=== PATIENT | male | born 2000 | race Caucasian/White ===

== ENCOUNTER 2018-03-06 14:31 | Emergency (ER) | payer OTHER ==
[2018-03-06] MEDS ORDERED: NS 1,000 ML IV ONE (15:26)
--- NOTE | 2018-03-06 15:30 | EDPHY ---
H & P Time Seen by Provider: 03/06/18 15:00 HPI/ROS: HPI Abdominal pain. 17-year-old male by private vehicle. This patient reports that he has had periumbilical and mid upper abdominal pain which has been intermittent in nature for the last week but worse over the last couple of days. He describes it as sharp and cramping. He reports it is worsen with movements such as coughing and walking. He has had some associated nausea. He reports 3 episodes of nonbilious, nonbloody vomiting this week. No diarrhea. Last bowel movement was this morning. He describes this as normal. No bloody or melenic stool. Last meal was last night at midnight. Denies any urinary complaints. No previous abdominal surgical history. ROS: Constitutional: No fever, no chills. No weakness. Eyes: No discharge. No changes in vision. ENT: No sore throat. No nasal congestion or rhinorrhea. Respiratory: No cough. No shortness of breath. Cardiac: No chest pain, no palpitations. Gastrointestinal: As above, no diarrhea. Genitourinary: No hematuria. No dysuria or increased frequency with urination. No testicular pain. Musculoskeletal: No back pain. No neck pain. No myalgias or arthralgias. Skin: No rashes. Neurological: No headache. No focal weakness or altered sensation. Past medical history: Pneumonia, no other significant past medical history. Social history: Nonsmoker. [employer]. Denies alcohol. Physical Exam: General Appearance: Alert, no distress. This patient is responding to questions appropriately and in full sentences. This patient appears well- hydrated and well-nourished. Eyes: Pupils equal and round no pallor or injection. No lid edema, erythema or injection. Respiratory: There are no retractions, lungs are clear to auscultation with good air movement bilaterally. Cardiovascular: Regular rate and rhythm. No murmur. Gastrointestinal: Abdomen is soft with vague periumbilical and mid upper abdominal tenderness on palpation, no masses, bowel sounds normal. No focal tenderness at McBurney's point. No Herrera sign. Neurological: Motor sensory function is grossly intact. Cranial nerves are normal. Gait is normal. Skin: Warm and dry, no rashes. Musculoskeletal: Neck is supple and nontender. Extremities are symmetrical. All joints range without pain or impingement. Psychiatric: No agitation. No depression. Database: EKG: Imaging: CT scan of abdomen and pelvis with IV contrast: Mild enteritis noted. CT otherwise negative. Results were discussed with staff radiologist Dr. Cj Blanc. Procedures: Emergency department course: IV was placed. He was placed on a monitor. He was started on IV normal saline with 1 L to be given over the next hour. He declines pain medication at this time. He consents for CT imaging to evaluate for hernia, aortic problem, colitis, a possible appendicitis. 5:20 p.m., patient re-evaluated. Resting comfortably at this time. Repeat abdominal exam is soft, nontender nondistended. Results of his CT scan, blood work and urinalysis discussed with him. He feels comfortable going home and I feel he is safe for discharge. I will have him follow up with his primary care physician for re-evaluation on Wednesday or Wednesday of this week. Return to emergency department precautions were thoroughly discussed with him. All of his questions were answered. He was discharged in good condition. Differential Diagnosis: The differential diagnosis on this patient includes but is not limited to enteritis, abdominal hernia, colitis, aortic aneurysm, appendicitis. This represents a partial list of diagnoses considered. These considerations are based on history, physical exam, past history, reassessment and diagnostic testing. Smoking Status: Never smoked Constitutional: Initial Vital Signs Temperature (C) 36.6 C 03/06/18 14:33 Heart Rate 65 03/06/18 14:33 Respiratory Rate 16 03/06/18 14:33 Blood Pressure 123/64 H 03/06/18 14:33 O2 Sat (%) 99 03/06/18 14:33 O2 Delivery Mode Room Air Allergies/Adverse Reactions: No Known Allergies Allergy (Unverified 03/06/18 14:37) Home Medications: Medication Instructions Recorded Prednisone 03/06/18 Medical Decision Making - Data Points Laboratory Results: Laboratory Results 03/06/18 14:45 03/06/18 14:45 03/06/18 03/06/18 03/06/18 16:13 14:45 14:45 WBC 7.96 10^3/uL 10^3/uL (3.80-9.50) RBC 5.36 10^6/uL 10^6/uL (4.40-6.38) Hgb 16.0 g/dL g/dL (13.7-17.5) Hct 47.2 % % (40.0-51.0) MCV 88.1 fL fL (81.5-99.8) MCH 29.9 pg pg (27.9-34.1) MCHC 33.9 g/dL g/dL (32.4-36.7) RDW 11.9 % % (11.5-15.2) Plt Count 244 10^3/uL 10^3/uL (150-400) MPV 10.4 fL fL (8.7-11.7) Neut % (Auto) 56.2 % % (39.3-74.2) Lymph % (Auto) 32.2 % % (15.0-45.0) [place] % (Auto) 8.7 % % (4.5-13.0) Eos % (Auto) 1.9 % % (0.6-7.6) Baso % (Auto) 0.5 % % (0.3-1.7) Nucleat RBC Rel Count 0.0 % % (0.0-0.2) Absolute Neuts (auto) 4.48 10^3/uL 10^3/uL (1.70-6.50) Absolute Lymphs (auto) 2.56 10^3/uL 10^3/uL (1.00-3.00) Absolute Monos (auto) 0.69 10^3/uL 10^3/uL (0.30-0.80) Absolute Eos (auto) 0.15 10^3/uL 10^3/uL (0.03-0.40) Absolute Basos (auto) 0.04 10^3/uL 10^3/uL (0.02-0.10) Absolute Nucleated RBC 0.00 10^3/uL 10^3/uL (0-0.01) Immature Gran % 0.5 % % (0.0-1.1) Immature Gran # 0.04 10^3/uL 10^3/uL (0.00-0.10) Sodium 141 mEq/L mEq/L (135-145) Potassium 4.1 mEq/L mEq/L (3.5-5.2) Chloride 102 mEq/L mEq/L (97-110) Carbon Dioxide 28 mEq/l mEq/l (22-31) Anion Gap 11 mEq/L mEq/L (8-16) BUN 22 mg/dL mg/dL (7-23) Creatinine 1.0 mg/dL mg/dL (0.7-1.3) Estimated GFR > 60 Glucose 87 mg/dL mg/dL (70-100) Calcium 9.4 mg/dL mg/dL (8.5-10.4) Total Bilirubin 0.6 mg/dL mg/dL (0.1-1.4) Conjugated Bilirubin 0.5 mg/dL mg/dL (0.0-0.5) Unconjugated Bilirubin 0.1 mg/dL mg/dL (0.0-1.1) AST 32 IU/L IU/L (17-59) ALT 38 IU/L IU/L (21-72) Alkaline Phosphatase 140 IU/L H IU/L (38-126) Total Protein 7.3 g/dL g/dL (6.3-8.2) Albumin 4.2 g/dL g/dL (3.5-5.0) Lipase 89 IU/L IU/L (23-300) Urine Color PALE YELLOW Urine Appearance CLEAR Urine pH 6.0 (5.0-7.5) Ur Specific [place] 1.010 (1.002-1.030) Urine Protein NEGATIVE (NEGATIVE) Urine Ketones NEGATIVE (NEGATIVE) Urine Blood NEGATIVE (NEGATIVE) Urine Nitrate NEGATIVE (NEGATIVE) Urine Bilirubin NEGATIVE (NEGATIVE) Urine Urobilinogen NEGATIVE EU EU (0.2-1.0) Ur Leukocyte Esterase NEGATIVE (NEGATIVE) Urine RBC 1-3 /hpf /hpf (0-3) Urine WBC 1-3 /hpf /hpf (0-3) Ur Epithelial Cells TRACE /lpf /lpf (NONE-1+) Urine Mucus TRACE /lpf /lpf (NONE-1+) Urine Glucose NEGATIVE (NEGATIVE) Medications Given: Discontinued Medications Sodium Chloride (Ns) 1,000 mls @ 0 mls/hr IV EDNOW ONE; Wide Open PRN Reason: Protocol Stop: 03/06/18 15:27 Last Admin: 03/06/18 15:36 Dose: 1,000 mls Departure - Departure Disposition: Home, Routine, Self-Care Clinical Impression: Abdominal pain, Enteritis Condition: Good Instructions: Acute Abdominal Pain (ED) Additional Instructions: Read and follow provided instructions. Follow-up with your primary care physician in 1-2 days for re-evaluation. You can take ibuprofen with meals for pain control, 600 mg every 8 hr with meals as needed. Avoid fatty, fried or spicy foods. Return to the emergency department for worsening pain, fever, vomiting, blood in your stool or other serious concerns. Referrals: NONE *PRIMARY CARE P,. [Primary Care Provider] - As per Instructions
[2018-03-06 15:32] LABS: PLATELET COUNT 244 10^3/uL (150-400)
[2018-03-06] MEDS ORDERED: IOPAMIDOL (ISOVUE-300) 100 ML BTL ONE (15:52)
[2018-03-06 17:06] VITALS: BP 135/77
== END 2018-03-06 17:35 | disposition home or self-care (01) ==
DX: K52.9 Noninfective gastroenteritis and colitis, unspecified (principal); E86.9 Volume depletion, unspecified
CPT/HCPCS: Q9967

== ENCOUNTER 2019-03-18 10:53 | Emergency (ER) | payer OTHER ==
--- NOTE | 2019-03-18 11:42 | EDPHY ---
General - History Smoking Status: Never smoked Time Seen by Provider: 03/18/19 11:20 Narrative: CLINICAL IMPRESSION: Left 1st middle and distal phalanx fractures ASSESSMENT/PLAN: 18-year-old male presents to the emergency department with left hand and thumb pain after jumping a fence last night. He has obvious bruising and swelling to the left thumb. No reproducible scaphoid tenderness, metacarpal pain on 2nd through 5th fingers, no wrist discomfort. No open wounds. Distal neurovascular exam is intact. X-ray show fractures to the left middle and distal phalanx. He was placed in a thumb spica splint, provided an orthopedic hand specialist referral, home treatment discussed, warning signs return to ED sooner discussed and discharge. DIFFERENTIAL DX: Differential includes but not limited to acute fracture, strain/sprain, joint dislocation, soft tissue contusion ED PROCEDURES: Procedure: Splint placement. A thumb spica splint was applied to left hand by manager technical training, supervised by myself. After application of the splint I returned and re-examined the patient. The splint was adequately immobilizing the joint and distal to the splint the patient's circulation and sensation was intact. ED COURSE: 11:30 am: X-rays ordered X-rays reviewed by myself. Patient has a fracture to the left middle phalanx of the thumb as well as a chip fracture to the distal phalanx. Images reviewed with the patient. Thumb spica splint ordered. CHIEF COMPLAINT: Left hand and thumb pain HPI: 18 yo male presents to the ER with left hand and thumb pain. He reports jumping a fence at [place] last night to use the restroom and landed wrong on his left hand. He immediately noted pain and this morning awoke with swelling and bruising to the left thumb. He is right-hand dominant. No open wounds. No wrist pain. He reports pain with abduction of the thumb and attempted flexion. No forearm or elbow pain. PAST MEDICAL HISTORY: None reported Social History: [id number] REVIEW OF SYSTEMS: All other systems negative Constitutional: No fever, no chills Musculoskeletal: No deformity, + joint pain Skin: No rashes, color change or open wounds. Neurological: No sensory loss or weakness. PHYSICAL EXAM: General Appearance: Alert, oriented, appropriate for age, cooperative, NAD, well hydrated, non-toxic appearing, VSS, no hypoxia. Neurological: Alert and oriented x 3, normal sensation and strength of extremities Skin: [Bruising noted to the volar aspect of the left thumb Musculoskeletal: Limited abduction and flexion of the left thumb secondary to pain and swelling. No scaphoid tenderness or wrist pain. No 2nd through 5th metacarpal pain. Full flexion of all fingers to fist without pain. No pain to passive extension to suggest tenosynovitis MEDICAL DECISION MAKING: Patient was seen independently. Secondary supervising physician at time of evaluation was Dr. Ruelas . Diagnosis: Left 1st middle phalanx fracture and distal phalanx fracture . New, requires workup Summary: See assessment and plan for summary of ED visit Independent visualization of images, tracing, or specimens yes. Patient Progress: Improved, stable for discharge. (Meño Rios) Discussion: The patient was evaluated and managed by the Physician Coffee Blender. My co- signature indicates that I have reviewed this chart and I agree with the findings and plan of care as documented. I am the secondary supervising physician. (Torie Ruelas) - Objective Vital Signs: Initial Vital Signs Temperature (C) 36.7 C 03/18/19 11:04 Heart Rate 88 03/18/19 11:04 Respiratory Rate 16 03/18/19 11:04 Blood Pressure 130/80 H 03/18/19 11:04 O2 Sat (%) 99 03/18/19 11:04 O2 Delivery Mode Room Air Allergies/Adverse Reactions: No Known Allergies Allergy (Unverified 03/06/18 14:37) Home Medications: Medication Instructions Recorded Prednisone 03/06/18 Departure - Departure Disposition: Home, Routine, Self-Care Clinical Impression: Fracture of thumb Condition: Good Instructions: Thumb Fracture (ED) Additional Instructions: DISCHARGE INSTRUCTIONS FROM YOUR DOCTOR Thank you for visiting our emergency department today. You were treated by a physician family practice physician assistant today and your case was reviewed with our ED Attending physician. Please keep in mind that discharge from the emergency department does not mean that there is nothing wrong - it simply means that we have not identified an emergency condition that requires further evaluation or treatment in the hospital. You should always plan to follow up with primary care for re- evaluation of your condition in the next 2-3 days. If you have been referred to a specialist, please call as soon as possible (today or tomorrow) to schedule your follow up appointment at the appropriate time. X-RAY SHOW A FRACTURE TO THE MIDDLE PHALANX OF THE LEFT THUMB WELL A SMALL CHIP FRACTURE TO THE DISTAL PHALANX. YOU WERE PLACED IN A THUMB SPICA SPLINT. PLEASE FOLLOW-UP WITH THE ORTHOPEDIC HAND SPECIALIST. A REFERRAL AND PHONE NUMBER WERE GIVEN. REST AND ELEVATE THE AFFECTED EXTREMITY MUCH POSSIBLE. ICE THE AFFECTED AREAS 20 MIN ON, 20 MIN OFF FOR THE NEXT SEVERAL DAYS. RETURN TO EMERGENCY DEPARTMENT SOONER FOR SEVERE OR WORSENING PAIN, LOSS OF SENSATION TO FINGERS OR THUMB, HIGH FEVERS OR ANY OTHER CONCERN. People present with illnesses and injuries in different ways, and it is always possible that we have missed something. You may always return for re-evaluation if symptoms worsen or if they are not improving or if you develop new/different symptoms. Again, thank you for choosing our emergency department. We hope that you feel better. Referrals: NONE *PRIMARY CARE P,. [Primary Care Provider] - As per Instructions Jj Banuelos MD [Medical Doctor] - 2-3 days, call for appt.
[2019-03-18 12:34] VITALS: BP 143/78
== END 2019-03-18 12:33 | disposition home or self-care (01) ==
DX: S62.522A Displaced fracture of distal phalanx of left thumb, initial encounter for closed fracture (principal); Y30.XXXA Falling, jumping or pushed from a high place, undetermined intent, initial encounter